=== PATIENT | female | born 1980 | race African-American/Black ===

== ENCOUNTER 2016-11-18 10:40 | Inpatient (IN) | payer MEDICARE ==
[~2016-11-18] VITALS: Ht 165.1 cm; Wt 60.1 kg
[2016-11-18] VITALS (35 sets, daily range): BP systolic 118–167; BP diastolic 81–105; BMI 19.6
--- NOTE | 2016-11-18 13:46 | NUR ---
DR. ALVAREZ AT BEDSIDE. NAUSEATED. ZOFRAN 4MG IV ORDERED BY DR. ALVAREZ.
[2016-11-18] MEDS ORDERED: COREG12.5 MG PO (13:59)
[2016-11-18] MEDS ORDERED: NIFEDIPINE ER90 MG PO (14:00)
[2016-11-18 14:51] LABS: BASOPHILS 0.1 % (0-2); EOSINOPHILS 0.1 % (0-7); HEMOGLOBIN 9.6 g/dL (12-16); IMMATURE GRANULOCYTES 0.5 % (0-5); LYMPHOCYTES 5.4 % (15-50); MCH 31.3 pg (26.0-34.0); MCHC 34.3 g/dL (31.0-37.0); MCV 91.2 fL (80.0-100.0); MEAN PLATELET VOLUME 10.4 fL (7.4-10.4); MONOCYTES 4.1 % (2-11); NEUTROPHILS 89.8 % (40-80); PLATELET COUNT 83 10x3/uL (130-400); RBC 3.07 10x6/uL (4.00-5.40); RDW 13.5 % (11.5-14.5); WBC 15.2 10x3/uL (4.8-10.8)
[2016-11-18 15:10] LABS: ALBUMIN 3.1 g/dL (3.4-5.0); ANION GAP 22.5 mmol/L (8-16); BILIRUBIN - DIRECT 0.1 mg/dL (0.00-0.30); BILIRUBIN - INDIRECT 0.27 mg/dL (0.00-1.00); BILIRUBIN - TOTAL 0.37 mg/dL (0.2-1.3); CARBON DIOXIDE 17.9 mmol/L (21.0-32.0); CREATININE - SERUM 12.8 mg/dL (0.6-1.3); POTASSIUM - SERUM 3.4 mmol/L (3.5-5.1); PROTEIN - SERUM 6.3 g/dL (6.4-8.2)
[2016-11-18 15:11] LABS: CALCIUM 5.8 mg/dL (8.5-10.1)
--- NOTE | 2016-11-18 15:17 | NUR ---
REC'D CRITCAL LABS CALCIUM: 5.8 ALBUIMIN:: 3.1 CORRECTEC CA+: 6.52 CREAT: 12.[address] ALVAREZ - AWAITING CALL BACK.
--- NOTE | 2016-11-18 15:20 | NUR ---
INFORMED DR. ALVAREZ OF CRITICAL LABS - REVIEWED K+: 3.4; CO2: 17.9 - NO NEW ORDERS. AT BEDSIDE VISITING. CPOC
[2016-11-18 15:31] LABS: PLATELET ESTIMATE DECREASED
[2016-11-18 16:00] LABS: ERYTHROCYTE SEDIMENTATION RATE 25 mm/hr (0-20)
--- NOTE | 2016-11-18 16:07 | NUR ---
UPDATED AND PT OF VISITING HOURS - I&Os COMPLETED PT DENIED NAUSEA OR PAIN - CPOC
--- NOTE | 2016-11-18 18:00 | NUR ---
PT DENIED NAUSE - ASKED FOR JELLO AND LIGHT LIQUIDS. FAMILY AT BEDSIDE - CPOC VSS.
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
[2016-11-18 20:27] LABS: CREATININE - URINE 101.4 mg/dL (30-125)
[2016-11-18 20:28] LABS: PRO/CRE RATIO URINE 3.7 mg/g; PROTEIN - URINE 376.2 mg/dL (0.0-11.9)
[2016-11-18 20:33] LABS: APPEARANCE HAZY (CLEAR); BACTERIA FEW /hpf (NONE SEEN); BILIRUBIN NEGATIVE (NEGATIVE); COLOR YELLOW (YELLOW); EPITHELIAL CELLS 0-5 /hpf (0-5); GLUCOSE NEGATIVE (NEGATIVE); KETONE SMALL mg/dL (NEGATIVE); LEUKOCYTE ESTERASE TRACE (NEGATIVE); NITRITE NEGATIVE (NEGATIVE); PROTEIN 2+ mg/dL (NEGATIVE); RED CELLS - URINE 0-5 /hpf (0-5); UROBILINOGEN NORMAL (NORMAL)
[2016-11-18 20:34] LABS: AMORPHOUS SEDIMENT >1+ /lpf (NONE SEEN)
--- NOTE | 2016-11-18 20:38 | NUR ---
DR. ANTONIO AYON.
--- NOTE | 2016-11-18 20:40 | NUR ---
NEW ORDERS RECEIVED FROM DR. ALVAREZ. MADE AWARE OF U/A RESULTS AND OTHER URINE TEST. WILL MONITOR.
--- NOTE | 2016-11-18 22:30 | NUR ---
EYES CLOSED. NO ACUTE DISTRESS NOTED. WILL MONITOR.
--- NOTE | 2016-11-18 23:05 | NUR ---
REASSESSMENT COMPLETED. SEE ASSESSMENT FLOWSHEET. AWOKE BRIEFLY DURING ASSESSMENT. CARDENE @ 2.5MG/HR. SBP @ 140MMHG. WILL MONITOR.
[2016-11-19] VITALS (90 sets, daily range): BP systolic 124–174; BP diastolic 77–108
--- NOTE | 2016-11-19 00:30 | NUR ---
NSR ON THE MONITOR. INCREASED CARDENE TO 5MG/HR.
--- NOTE | 2016-11-19 01:40 | NUR ---
EYES CLOSED. LAYING ON RT SIDE. NO ACUTE DISTRESS NOTED. WILL MONITOR.
--- NOTE | 2016-11-19 03:35 | NUR ---
REASSESSMENT COMPLETED. SEE ASSESSMENT FLOWSHEET. NO NEW ACUTE DISTRESS NOTED. WILL MONITOR.
--- NOTE | 2016-11-19 04:00 | NUR ---
REFUSED SCD'S. AWARE OF RISK.
--- NOTE | 2016-11-19 05:00 | NUR ---
AM LABS BEING DRAWN BY FE. WILL MONITOR.
[2016-11-19 05:52] LABS: BASOPHILS 0.3 % (0-2); EOSINOPHILS 2.2 % (0-7); HEMATOCRIT 23.8 % (36.0-48.0); HEMOGLOBIN 8.3 g/dL (12-16); IMMATURE GRANULOCYTES 0.5 % (0-5); LYMPHOCYTES 13.3 % (15-50); MCH 31.8 pg (26.0-34.0); MCHC 34.9 g/dL (31.0-37.0); MCV 91.2 fL (80.0-100.0); MONOCYTES 8.4 % (2-11); NEUTROPHILS 75.3 % (40-80); RBC 2.61 10x6/uL (4.00-5.40); RDW 13.5 % (11.5-14.5); WBC 14.7 10x3/uL (4.8-10.8)
[2016-11-19 05:58] LABS: PLATELET COUNT 118 10x3/uL (130-400)
[2016-11-19 06:14] LABS: ANION GAP 21.7 mmol/L (8-16); CARBON DIOXIDE 17.5 mmol/L (21.0-32.0); CREATININE - SERUM 13.3 mg/dL (0.6-1.3); POTASSIUM - SERUM 3.2 mmol/L (3.5-5.1)
[2016-11-19 06:15] LABS: CALCIUM 5.2 mg/dL (8.5-10.1)
[2016-11-19 06:56] LABS: ALBUMIN 2.7 g/dL (3.4-5.0)
[2016-11-19 09:33] LABS: % SATURATION 25 % (15-55); IRON 48 ug/dl (35-150); TOTAL IRON BIND CAPACITY 187 ug/dl (260-445); UNSAT IRON BIND CAPACITY 139 ug/dl (150-375)
[2016-11-19 09:47] LABS: PHOSPHOROUS 7.3 mg/dL (2.5-4.9)
[2016-11-19 10:13] LABS: HELICOBACTER PYLORI IGG NEGATIVE (NEGATIVE)
--- NOTE | 2016-11-19 11:00 | NUR ---
NO CHANGE NOTED
--- NOTE | 2016-11-19 15:00 | NUR ---
NO CHANGES NOTED
--- NOTE | 2016-11-19 17:47 | NUR ---
ORDER FAXED TO [employer] TO SCHED. HEMOSPLIT DIALYSIS CATHETER PLACEMENT, FAX CONFIRMED. PERMITS EXPLAINED AND SIGNED BY PATIENT.
--- NOTE | 2016-11-19 19:45 | NUR ---
SHIFT ASSESSMENT COMPLETE. PT ALERT AND ORIENTED X3. S1S2 AUDIBLE. HR 102 SINUS TACH VIA TELEMETRY. REGULAR BREATHING PATTERN WITH CLEAR LOBES BILAT. ACTIVE BOWEL SOUNDS IN ALL QUADS. SCAR ON ABDOMEN NOTED. PT ABLE TO AMBULATE ON OWN. SANDWICH TRAY DELIVERED PER REQUEST. INFORMED PT THAT SHE WILL BE NPO AFTER MIDNIGHT. PT STATES THAT SHE UNDERSTANDS. CARDENE INFUSING AT 6 MG/HR. BP 149/52. BED IN LOWEST POSITION. CALL LIGHT IN REACH. NO FURTHER REQUESTS.
--- NOTE | 2016-11-19 21:30 | NUR ---
NEW IV SITE TO R UPPER ARM VIA Herman POLO RN. 1 ATTEMPT, 22G. NEW SITE PER BILL PROTOCOL. PT UP IN CHAIR GIVING HERSELF A BATH. SHE STATES THAT SHE DOES NOT NEED ANYTHING AT THIS TIME. CALL LIGHT IN REACH. WILL CONTINUE TO MONITOR.
--- NOTE | 2016-11-19 23:20 | NUR ---
PT AWAKE AND WATCHING TV. REASSESSMENT COMPLETE. VSS. TITRATED DOWN TO 5 ML/HR OF CARDENE. BP IS WNL. CONTINUING TO MONITOR BP VERY CLOSELY. PT STATES THAT SHE DOES NOT NEED ANYTHING AT THIS TIME. WILL CONTINUE TO MONITOR. CALL LIGHT IN REACH.
[2016-11-20] VITALS (90 sets, daily range): BP systolic 120–158; BP diastolic 72–98; Ht 165.1 cm; Wt 60.1 kg
--- NOTE | 2016-11-20 01:00 | NUR ---
PT RESTING PEACEFULLY AT THIS TIME. VSS. WILL CONTINUE TO MONITOR.
--- NOTE | 2016-11-20 03:00 | NUR ---
REASSESSMENT COMPLETE. NO CHANGES NOTED AT THIS TIME. VSS. PT RESTING IN BED ON HER RIGHT SIDE. CALL LIGHT IN REACH. WILL CONTINUE TO MONITOR.
[2016-11-20 03:53] LABS: BASOPHILS 0.2 % (0-2); EOSINOPHILS 3.8 % (0-7); HEMATOCRIT 21.6 % (36.0-48.0); IMMATURE GRANULOCYTES 0.5 % (0-5); LYMPHOCYTES 14.6 % (15-50); MCH 30.9 pg (26.0-34.0); MCHC 33.8 g/dL (31.0-37.0); MCV 91.5 fL (80.0-100.0); MEAN PLATELET VOLUME 10.6 fL (7.4-10.4); MONOCYTES 9.2 % (2-11); NEUTROPHILS 71.7 % (40-80); PLATELET COUNT 136 10x3/uL (130-400); RBC 2.36 10x6/uL (4.00-5.40); RDW 13.7 % (11.5-14.5); WBC 13.7 10x3/uL (4.8-10.8)
[2016-11-20 03:54] LABS: HEMOGLOBIN 7.3 g/dL (12-16)
[2016-11-20 04:07] LABS: ANION GAP 19.5 mmol/L (8-16); CREATININE - SERUM 13.2 mg/dL (0.6-1.3); POTASSIUM - SERUM 3.5 mmol/L (3.5-5.1)
[2016-11-20 04:08] LABS: CALCIUM 6.7 mg/dL (8.5-10.1)
[2016-11-20 04:16] LABS: ALBUMIN 2.6 g/dL (3.4-5.0)
--- NOTE | 2016-11-20 05:00 | NUR ---
PT RESTING AT THIS TIME. NO CHANGES NOTED. BED IN LOWEST POSITION. CALL LIGHT IN REACH. WILL CONTINUE TO MONITOR.
--- NOTE | 2016-11-20 08:53 | NUR ---
0900- PT C/O HER TOUNGE BEING SWOLLEN AND THROAT EDEMA. CALLED AND REPORTED TO DR ALVAREZ, BENADRYL GIVEN AND CALCIUM GLUCONATE GIVEN. PT AT NOW VERBILIZES SYMPTOMS BETTER. REPORTED PROLONGED QT NOTED ON EKG RYTHM. REPORTED TO DR ALVAREZ WELL.
[2016-11-20 10:00] LABS: CKMB 1.8 U/L (0.0-3.6); CREATINE KINASE 273 UL (21-215)
[2016-11-20 10:03] LABS: TROPONIN-I 0.434 ng/mL (0.000-0.060)
--- NOTE | 2016-11-20 10:30 | NUR ---
SPOKE WITH JACKSON PUENTE TO NOTIFY OF TROPONIN AND CK LEVELS, ORDERS REC'D, WILL RECHECK CARDIAC ENZYMES IN 8HRS.
--- NOTE | 2016-11-20 10:50 | NUR ---
PT TO OR. CONCENTS ON CHART, PREOP MEDS GIVEN. 1050-
--- NOTE | 2016-11-20 11:36 | NUR ---
PT BACK TO ICU, PT SEDATED AND ORAL AIRWAY IN PLACE, SPO2 99% ON 4L NRB. RESP 16. BP 128/78.
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
--- NOTE | 2016-11-20 11:59 | NUR ---
PT CONTINUES TO BE UNRESPONSIVE,ORAL AIRWAY INTACT. VSS, AFEBRILE. NARCAN 0.2MG GIVEN.
--- NOTE | 2016-11-20 12:01 | NUR ---
PT AWAKENS QUICKLY AFTER NARCAN GIVEN. A&OX2, FOLLOWS COMMAND.
--- NOTE | 2016-11-20 15:30 | NUR ---
Dialysis Coordinator: [facility]: Notified by Courtney MEDLEY of paitent needing OPHD arrangements. Per CM patient previously on PD, then regained function. Patient now needing placement for OPHD. Patient lives in [place] and needs placement in the [place] area. Referral sent to [facility] Admissions for placement at [facility]. JOSE WALLS.
[2016-11-20 18:33] LABS: CKMB 2.1 U/L (0.0-3.6); CREATINE KINASE 290 UL (21-215)
[2016-11-20 18:38] LABS: TROPONIN-I 0.753 ng/mL (0.000-0.060)
--- NOTE | 2016-11-20 19:00 | NUR ---
SHIFT ASSESSMENT COMPLETE. PT IN BED STATING THAT SHE IS IN SOME PAIN. CALLED PHYSICIAN. NEW ORDER FOR TRAMADOL 50 MG Q 6 HRS VIA GERMAINE. PT ALERT AND ORIENTED TO PERSON, PLACE, TIME, AND SITUATION. S1S2 AUDIBLE. HR 105, SINUS TACH VIA TELEMETRY. L JUGULAR HEMASPLIT PLACED TODAY. DRESSING INTACT WITH BLOODY DRAINAGE NOTED. CLEAR LUNG SOUNDS THROUGHOUT ALL LOBES. BOWEL SOUNDS ACTIVE X4. 2 IV ACCESS POINTS IN R ARM: R UPPER AND R FOREARM. CARDENE INFUSING AT 5MG/HR IN THE RIGHT UPPER IV. SKIN IS WARM TO TOUCH, CAP REFILL < 3 SEC. PT REPOSITIONED FOR COMFORT. CALL LIGHT IN REACH. BED IN LOWEST POSITION. WILL CONTINUE TO MONITOR.
--- NOTE | 2016-11-20 21:00 | NUR ---
PT STATES THAT HER PAIN IS A 4/10 AFTER RECIEVING PRN PAIN MEDICATION. REPOSITONED FOR COMFORT. WATER PROVIDED AT BEDSIDE. VSS. LIGHT OUT. WILL CONTINUE TO MONITOR.
--- NOTE | 2016-11-20 21:06 | NUR ---
DR. HERRON NOTIFIED THAT PT IS REFUSING ROCEPHIN D/T TONGUE SWELLING THIS AM - NEW ORDERS REC'D.
--- NOTE | 2016-11-20 23:00 | NUR ---
PT RESTING. REASSESSMENT COMPLETE. L NECK DRESSING INTACT WITH BLOODY DRAINAGE NOTED. NO CHANGE FROM SHIFT ASSESSMENT. STILL WAITING FOR LEVOQUIN VIA PHARMACY. HR 105, SINUS TACH VIA TELEMETRY. BP 137/87. PT DENIES ANY REQUESTS AT THIS TIME. WILL CONTINUE TO MONITOR.
[2016-11-21] VITALS (89 sets, daily range): BP systolic 119–165; BP diastolic 71–99
--- NOTE | 2016-11-21 01:00 | NUR ---
PT RESTING AT THIS TIME. NO SIGNS OF PAIN OR DISTRESS. VSS. WILL CONTINUE TO MONITOR.
--- NOTE | 2016-11-21 03:00 | NUR ---
REASSESSMENT COMPLETE. DRESSING INTACT WITH BLOODY DRAINAGE. NO NEW FINDINGS. PT RESTING PEACEFULLY AT THIS TIME. HR 98, NORMAL SINUS RHYTHM VIA TELEMETRY. VSS. WILL CONTINUE TO MONITOR.
[2016-11-21 04:00] LABS: BASOPHILS 0.2 % (0-2); EOSINOPHILS 4.2 % (0-7); HEMATOCRIT 25.2 % (36.0-48.0); HEMOGLOBIN 8.6 g/dL (12-16); IMMATURE GRANULOCYTES 0.5 % (0-5); LYMPHOCYTES 15.5 % (15-50); MCH 31.2 pg (26.0-34.0); MCHC 34.1 g/dL (31.0-37.0); MCV 91.3 fL (80.0-100.0); MEAN PLATELET VOLUME 11.7 fL (7.4-10.4); MONOCYTES 9.8 % (2-11); NEUTROPHILS 69.8 % (40-80); RBC 2.76 10x6/uL (4.00-5.40); RDW 14.3 % (11.5-14.5)
--- NOTE | 2016-11-21 04:00 | NUR ---
TITRATED CARDENE DOWN TO 4 MG/HR. BP 126/71. VSS. PT RESTING AT THIS TIME.
[2016-11-21 04:05] LABS: PLATELET COUNT 176 10x3/uL (130-400)
[2016-11-21 04:31] LABS: CALC OSMOLALITY 299 mosm/kg (275-300); CARBON DIOXIDE 17.9 mmol/L (21.0-32.0); CHLORIDE - SERUM 102 mmol/L (98-107); CKMB 1.4 U/L (0.0-3.6); CREATINE KINASE 269 UL (21-215); CREATININE - SERUM 13.8 mg/dL (0.6-1.3); GLUCOSE 102 mg/dL (74-106); POTASSIUM - SERUM 3.3 mmol/L (3.5-5.1); SODIUM 135 mmol/L (136-145); UREA NITROGEN 96 mg/dL (7-18); eGFR NON AFRICAN AMERICAN 3 mL/min (90-120)
[2016-11-21 04:32] LABS: CALCIUM 5.7 mg/dL (8.5-10.1)
--- NOTE | 2016-11-21 05:10 | NUR ---
PT RESTING AT THIS TIME. NO S/S OF DISTRESS OR PAIN. VSS. WILL CONTINUE TO MONITOR.
--- NOTE | 2016-11-21 06:15 | NUR ---
CRITICAL LABS RECIEVED CALCIUM: 5.7 ALBUMIN: 2.5 CORRECTED CALCIUM: 6.90 CL: 102 PAGED GERMAINE.
--- NOTE | 2016-11-21 06:45 | NUR ---
INFORMED JOSHUA ABOUT CRITICAL. NEW ORDERS RECIEVED: GIVE 1 AMP CACL.
[2016-11-21 07:18] LABS: FOLATE (FOLIC ACID) - SERUM 6.9 ng/mL (>3.0)
--- NOTE | 2016-11-21 09:16 | NUR ---
HD HERE SETTING UP AT BS, ORDERS ON CHART. BREAKFAST TRAY GIVEN AND PT DRANK JUICE BUT REFUSED HER MEAL THIS AM. BP 148/88, CARDENE GTT DEC TO 3MG/HR FROM 4MG/HR.
--- NOTE | 2016-11-21 11:22 | NUR ---
0930- HD STARTED, VSS, PT AWAKE AND WATCHING TV.
--- NOTE | 2016-11-21 11:23 | NUR ---
1130- HD STILL IN PROGRESS, DR HERRON HERE. VSS.
--- NOTE | 2016-11-21 12:39 | NUR ---
HD COMPLETE. VSS.
--- NOTE | 2016-11-21 12:48 | NUR ---
Mrs. Junior had bedside hemodialysis today via her left chest hemosplit from 0930 until 1230. Average blood flow was 400 mls/minute. Net fluid removed was 1000 mls. Post vital signs were: B/P: 157/90, HR: 90, Temp: 98.8, Resps: 16. No problems.
--- NOTE | 2016-11-21 19:15 | NUR ---
REPORT RECEIVED AND CARE ASSUMED. PT NOTED TO BE MONITORED PER STANDARD ICU PROTOCOL WITH ALL IV LINES AND FLUIDS LABELED AND CURRENT. DRESSING TO LEFT JUGULAR HEMISPLIT WITH SOME BLOODY DRAINAGE AND CLOT. REINFORCED. NO ACTIVE BLEEDING AT THIS TIME. PT AAOX4 AND DENIES PAIN AND NEEDS. PT NOTED TO BE ON 2 MCG/HR CARDENE AND IT WAS REPORTED TO HAVE JUST BEEN INCREASED FROM 1MCG. WILL MONITOR AND TITRATE NEEDED TO MAINTAIN PARIMETERS ORDERED OF 90-140. CALL LIGHT IN REACH OF PT AND BED IN LOW POSITION.
--- NOTE | 2016-11-21 20:00 | NUR ---
B/P REMAINS OUTSIDE ORDERED PARIMETER WILL BE TITRATING AND ADJUSTING CARDENE. SEE IV FLOWSHEET FOR CHANGES
--- NOTE | 2016-11-21 21:00 | NUR ---
HS MEDS GIVEN WITHOUT DIFFICULTY. PT TEACHING DONE PRIOR TO ADMINISTRATION. PT VERBALIZES UNDERSTANDING. PT AMBULATED TO CHAIR AND GAVE SELF BATH AFTER SET UP DONE. ALL LINENS CHANGED AND PT ASSISTED BACK INTO BED AND RECONNECTED BACK TO MONITORS. NO COMPLAINTS OFFERED
--- NOTE | 2016-11-21 23:00 | NUR ---
SHIFT REASSESSMENT COMPLETED SEE FLOWSHEET NO ACUTE CHANGES. HS SNACK OF SANDWICH PROVIDED. PT AAOX4 WATCHING TELEVISION
[2016-11-22] VITALS (76 sets, daily range): BP systolic 128–183; BP diastolic 75–110
--- NOTE | 2016-11-22 01:00 | NUR ---
PT SLEEPING RESP REG AND NONLABORED. CONTINUE TO TITRATE CARDENE PER FLOWSHEET
--- NOTE | 2016-11-22 03:30 | NUR ---
PT RESTING AT THIS TIME. REASSESSMENT COMPLETE. NO CHANGES FROM PREVIOUS ASSESSMENT. S1S2 AUDIBLE. CLEAR LUNG SOUNDS BILAT. BOWEL SOUNDS ACTIVE X4. CHANGED IV TUBING. STICKER PLACED TO INDICATE WHEN TUBING IS NEEDING TO BE CHANGED AGAIN. SWAB CAPS IN USE. FLUSHED LOWER R ARM IV WITH 10CC NS. IV PATENT WITH NO S/S OF INFILTRATION. CALL LIGHT IN REACH. WILL CONTINUE TO MONITOR.
[2016-11-22 03:51] LABS: BASOPHILS 0.2 % (0-2); EOSINOPHILS 2.9 % (0-7); HEMATOCRIT 24.9 % (36.0-48.0); HEMOGLOBIN 8.3 g/dL (12-16); IMMATURE GRANULOCYTES 0.4 % (0-5); LYMPHOCYTES 12.3 % (15-50); MCH 31.2 pg (26.0-34.0); MCHC 33.3 g/dL (31.0-37.0); MCV 93.6 fL (80.0-100.0); MEAN PLATELET VOLUME 11.5 fL (7.4-10.4); MONOCYTES 10.9 % (2-11); NEUTROPHILS 73.3 % (40-80); PLATELET COUNT 199 10x3/uL (130-400); RBC 2.66 10x6/uL (4.00-5.40); RDW 14.5 % (11.5-14.5); WBC 9.6 10x3/uL (4.8-10.8)
[2016-11-22 04:03] LABS: POTASSIUM - SERUM 3.5 mmol/L (3.5-5.1)
[2016-11-22 04:18] LABS: ANION GAP 11.6 mmol/L (8-16); CALCIUM 6.5 mg/dL (8.5-10.1); CARBON DIOXIDE 27.9 mmol/L (21.0-32.0); CREATININE - SERUM 7.2 mg/dL (0.6-1.3)
--- NOTE | 2016-11-22 05:00 | NUR ---
PT SLEEPING AT THIS TIME. BP 135/77, WITHIN PARAMETERS FOR CARDENE DRIP. BED IN LOWEST POSITON. CALL LIGHT IN REACH.
--- NOTE | 2016-11-22 05:00 | NUR ---
RECIEVED CRITICAL LAB CALCIUM: 6.5 ALBUMIN: 2.2 CORRECTED CALCIUM: 7.94
--- NOTE | 2016-11-22 06:55 | NUR ---
INFORMED DR. HERRON OF CRITICAL LABS.
--- NOTE | 2016-11-22 07:48 | NUR ---
DR HERRON HERE, REC'D ORDERS TO TITRATE CARDEDE DOWN SBP LESS THAN 160 DECREASED CARDENE GTT TO 6MG/HR.
--- NOTE | 2016-11-22 10:09 | NUR ---
hd in progress, bp 145/87, hr 93. cardene gtt titrated down to 5mg/hr this am.
--- NOTE | 2016-11-22 11:04 | NUR ---
Nutrition follow-up: Diet: Regular per renal PO intake ~50% of meals; pt has been refusing some meals also Receiving dialysis at this time Will continue to provide food choices and honor food preferences. RDN following.
--- NOTE | 2016-11-22 12:17 | NUR ---
Mrs. Junior had bedside hemodialysis today from 0847 until 1147 via her left IJ Hemosplit. Average blood flow was 400 mls/minute. Net fluid removed was 1000 mls. Post vital signs were: B/P: 151/83, HR: 93, Temp: 98.7, Resps: 18.
--- NOTE | 2016-11-22 13:47 | NUR ---
CARDENE TITRATED TO OFF. SBP 148, 15MIN AFTER CARDENE OFF [id number]. PRN LABETELOL GIVEN. SBP NOW 148. HR 95 NSR.
--- NOTE | 2016-11-22 16:18 | NUR ---
BP 169/108. DR HERRON NOTIFIED AND REC'D ORDERS FOR PO PROCARDIA. DR MCCLELLAN HERE ON ROUNDS.
--- NOTE | 2016-11-22 17:03 | NUR ---
1700-SBP 165/107. LABETELOL GIVEN.
--- NOTE | 2016-11-22 19:00 | NUR ---
REPORT RECEIVED. ASSESSMENT COMPLETE PER FLOW SHEET. TELEMETRY MONITORING RATE OF 84 NORMAL SINUS. BP 149/94. ORAL TEMP 98.9. RR 12. O2 SATURATION 99% ROOM AIR. S1S2 PRESENT. LUNG SOUNDS CLEAR BILAT. BOWEL SOUNDS ACTIVEX4. ABDOMENAL SCARS NOTED. 2 IN LEFT JUGULAR INCISION, AREA IS CLEAN AND DRY. L SUBCLAVIAN HEMOSPLIT DIALYSIS CATHETER, DRESSING ADHERED TO SKIN, CLEAN, AND DRY. R UPPER ARM PIV SALINE LOC, PATENT, DRESSING CLEAN, DRY, AND INTACT. R FOREARM PIV PATENT, DRESSING INTACT, CLEAN, AND DRY. RADIAL PULSES PALP BILAT. POPLITEAL PULSES PALP BILAT. [employer] SCOUT STRENGHT. FULL ROM UPPER AND LOWER EXTREMITIES. SKIN WARM AND DRY. CAPILLARY REFILL <3 SECS UPPER AND LOWER EXTREMITIES. SEE FLOW SHEET FOR COMPLETE ASSESSMENT. BED IN LOWEST POSITION. CALL LIGHT WITHIN REACH. DENIES FURTHER NEEDS AT THIS TIME. WILL CONTINUE TO MONITOR.
--- NOTE | 2016-11-22 21:00 | NUR ---
AWAKE, LAYING IN BED. BP 142/87. HR 93. R FOREARM PIV REMOVED. BED IN LOWEST POSITION. CALL LIGHT WITHIN REACH. WILL CONTINUE TO MONITOR.
--- NOTE | 2016-11-22 22:06 | NUR ---
MED ADMINISTERED. VSS. SANDWICH TRAY AND WATER PROVIDED PER REQUEST. BED IN LOWEST POSITION. CALL LIGHT WITHIN REACH. WILL CONTINUE TO MONITOR.
--- NOTE | 2016-11-22 23:00 | NUR ---
AWAKE LAYING IN BED. REASSESSMENT COMPLETE PER FLOW SHEET. BP 132/79. HR 94. REFER TO FLOW SHEET FOR COMPLETE ASSESSMENT. BED IN LOWEST POSITION. CALL LIGHT WITHIN REACH. WILL CONTINUE TO MONITOR.
[2016-11-23] VITALS (14 sets, daily range): BP systolic 132–153; BP diastolic 76–99
--- NOTE | 2016-11-23 01:00 | NUR ---
ASLEEP, RESTING IN BED. VSS. BED IN LOWEST POSITION. CALL LIGHT WITHIN REACH. WILL CONTINUE TO MONITOR.
--- NOTE | 2016-11-23 03:00 | NUR ---
REASSESSMENT COMPLETE PER FLOW SHEET. BP 148/93. NO CHANGES NOTED. REFER TO FLOW SHEET FOR COMPLETE ASSESSMENT. BED IN LOWEST POSITION. CALL LIGHT WITHIN REACH. WILL CONTINUE TO MONITOR.
--- NOTE | 2016-11-23 05:00 | NUR ---
LAYING IN BED, ASLEEP. BP 153/94. VSS. BED IN LOWEST POSITION. WILL CONTINUE TO MONITOR.
[2016-11-23 05:05] LABS: BASOPHILS 0.2 % (0-2); EOSINOPHILS 3.2 % (0-7); HEMATOCRIT 24.8 % (36.0-48.0); HEMOGLOBIN 8.1 g/dL (12-16); IMMATURE GRANULOCYTES 0.5 % (0-5); LYMPHOCYTES 14.6 % (15-50); MCH 31.6 pg (26.0-34.0); MCHC 32.7 g/dL (31.0-37.0); MEAN PLATELET VOLUME 11.2 fL (7.4-10.4); MONOCYTES 11.5 % (2-11); RBC 2.56 10x6/uL (4.00-5.40); RDW 14.1 % (11.5-14.5); WBC 10.7 10x3/uL (4.8-10.8)
[2016-11-23 05:09] LABS: MCV 96.9 fL (80.0-100.0); PLATELET COUNT 244 10x3/uL (130-400)
[2016-11-23 05:11] LABS: ANION GAP 10.7 mmol/L (8-16); CALCIUM 7.1 mg/dL (8.5-10.1); POTASSIUM - SERUM 3.7 mmol/L (3.5-5.1)
[2016-11-23 05:14] LABS: CREATININE - SERUM 5.2 mg/dL (0.6-1.3)
--- NOTE | 2016-11-23 07:45 | NUR ---
ASSESSMENT COMPLETE. AAO X4. ROOM AIR. CLEAR LUNGS. NSR. RADIAL AND PEDAL PULSES PALP. DENIES NEEDS, DENIES PAIN. ACTIVE BOWEL SOUNDS X4. REPORTS FRUSTRATION ABOUT BEING IN ICU AND REQUESTS TO BE D/C OR MOVED TO REGULAR UNIT SO FAMILY CAN VISIT FREELY. IJ HEMOSPLIT SL. RF PIV PATENT. FOR OTHER ASSESSMENT FINDINGS SEE FLOWSHEET
--- NOTE | 2016-11-23 09:28 | NUR ---
MEDS GIVEN. PT WITHDRAWN, FRUSTRATED. SAYS "IM READY TO GO HOME."
--- NOTE | 2016-11-23 09:44 | NUR ---
DR. HERRON AT BEDSIDE. NEW ORDERS RECEIVED.
--- NOTE | 2016-11-23 11:10 | NUR ---
DIALYSIS NURSE AT BEDSIDE, BLOOD INFUSING. DIALYSIS IN PROGRESS.
[2016-11-23 12:14] LABS: SPE - A/G RATIO 1.2 (0.7-1.7); SPE - ALBUMIN 3.2 g/dL (2.9-4.4); SPE - ALPHA-1 GLOBULIN 0.4 g/dL (0.0-0.4); SPE - ALPHA-2 GLOBULIN 0.5 g/dL (0.4-1.0); SPE - BETA GLOBULIN 0.9 g/dL (0.7-1.3); SPE - GAMMA GLOBULIN 0.9 g/dL (0.4-1.8); SPE - M-SPIKE Not Observed g/dL (Not Observed); SPE - TOTAL PROTEIN 5.9 g/dL (6.0-8.5)
--- NOTE | 2016-11-23 13:06 | NUR ---
Mrs. Junior had bedside hemodialysis today via her left chest hemosplit from 0947 until 1247. Average blood flow was 400 mls/minute. Transfused one unit of prbc's. Removed the 350 mls from the prbc's as well as a net of 1000 mls. Post vital signs were: B/P: 156/97, HR: 86, Temp: 98.4, Resps: 16.
--- NOTE | 2016-11-23 13:30 | NUR ---
DIALYSIS COMPLETED EARLIER. PT DENIES NEEDS AT THIS TIME. TOOK PT LUNCH TRAY
--- NOTE | 2016-11-23 15:28 | NUR ---
PT FRUSTRATED BECAUSE SHE IS WANTING TO MOVE TO A REGULAR FLOOR. NOTIFIED FUR BLOWING MACHINE OPERATOR. SAID HE WOULD GET HER A BED. SHE IS WANTING TO MOVE OUT BECAUSE SHE WANTS HER FAMILY TO COME SEE HER AND BE ABLE TO STAY WITH HER.
--- NOTE | 2016-11-23 15:37 | NUR ---
11/23/2016 15:36 DCP: Discharge Planning Patient Name: DANIEL NAIR Encounter No: [id number] : 1980 Primary Insurance: [employer] Anticipated DC Date: Planned Disposition: Home DCP follow-up note: GALINDO spoke with Lindsey with [facility] - she is still working to get patient on HD schedule in [place]. Patient and family in agreement with discharge plan. No changes to plan. Case management will follow and assist as needed. Courtney Butler
--- NOTE | 2016-11-23 16:46 | NUR ---
Patient Name: DANIEL NAIR Encounter No: [id number] : 1980 Primary Insurance: [employer] BLUE ADVANTAGE Anticipated DC Date: 11-24-2016 Planned Disposition: Home DCP follow-up note: CM RECEIVED MESSAGE FROM DR. HERRON ASKING THAT PT BE SET UP AT [facility] FOR OUTPATIENT DIALYSIS FOR T/T/SA SCHEDULE, PROJECTED DISCHARGE HOME TOMORROW IF STABLE AND OUTPATIENT CLINIC ARRANAGEMENTS ARE COMPLETED. CM SPOKE TO BLANCO OF [facility], , WHO REPORTS SHE IS WORKING ON GETTING PT AN OUTPATIENT CHAIR TIME AT [facility] IN [place] AND WILL NOTIFY CASE MANAGMENT SOON IT IS RECEIVED. CM TO FOLLOW AND ASSIST NEEDED. Hero Shaffer, CASE MANAGEMENT
--- NOTE | 2016-11-23 17:10 | NUR ---
Dialsyis Coordinator: [facility]: Patient has been accepted @ [facility] on Sunday//Sunday @ 11:15am. Welcome Letter printed and faxed to the CM for the patient. Patient cannot start in the unit until Sunday11/28/16. Dr. Salcedo notified. JOSE. TITI.
--- NOTE | 2016-11-23 18:10 | NUR ---
PATIENT RECEIVED TO ROOM 2108, SHE IS SITTING UP STYLE IN HER BED. LINENS GIVEN FOR A SHOWER. SHE DNIED OTHER NEEDS AT THIS TIMES.
--- NOTE | 2016-11-23 20:09 | NUR ---
PT AWAKE, ALERT, ORIENTED, DENIES ANY NEEDS. CONTINUE TO MONITOR CLOSELY.
--- NOTE | 2016-11-23 22:38 | NUR ---
PT LYING IN BED, AWAKE, ALERT, ORIENTED, DENIES ANY NEEDS. IV LEVAQUIN INFUSING. NO COMPLAINTS. CONTINUE TO MONITOR CLOSELY.
[2016-11-24] VITALS: BP 153/96
[2016-11-24 04:00] VITALS: BP 153/80
[2016-11-24 08:18] LABS: UPE RAND - ALBUMIN 60.5 % (()); UPE RAND - ALPHA 1 GLOBULIN 4.2 % (()); UPE RAND - ALPHA 2 GLOBULIN 12.4 % (()); UPE RAND - BETA GLOBULIN 9.5 % (()); UPE RAND - GAMMA GLOBULIN 13.3 % (())
[2016-11-24 08:20] VITALS: BP 154/100
--- NOTE | 2016-11-24 09:57 | NUR ---
PATIENT OFF THE UNIT TO DIALYSIS.
[2016-11-24] MEDS ORDERED: ROCALTROL0.25 MCG PO (10:47)
[2016-11-24] MEDS ORDERED: COREG12.5 MG PO (10:47)
[2016-11-24] MEDS ORDERED: ULTRAM50 MG PO (10:48)
[2016-11-24] MEDS ORDERED: TUMS500 MG PO (10:48)
--- NOTE | 2016-11-24 11:50 | NUR ---
11/24/2016 11:45 DCP: Discharge Planning Patient Name: DANIEL NAIR Encounter No: [id number] : 1980 Primary Insurance: [employer] BLUE ADVANTAGE Anticipated DC Date: Planned Disposition: Home External Planned Provider: Narendra SINGH DCP follow-up note: DC order rec'd. Rec'd message from Lindsey stating patient has been set up for OP HD @ [facility] 6940 to begin 11/28. [address] Dr. Salcedo. Patient and family in agreement with discharge plan. No changes to plan. Case management will follow and assist as needed. Courtney Butler
[2016-11-24 12:35] VITALS: BP 160/95
--- NOTE | 2016-11-24 12:46 | NUR ---
DISCUSSED DISCHARGE INSTRUCTIONS AND OUTPATIENT DIALYSIS ORDERS. RX FOR TRAMADOL GIVEN. DENIES QUESTIONS.
== END 2016-11-24 13:05 | disposition home or self-care (01) | DRG 683 ==
LOC: D.ICU 10:40 → D.M2 11-23 17:28
PROVIDERS: Surgery; ADMIT Internal Medicine Nephrology
PROC: 02HV33Z Insertion of Infusion Device into Superior Vena Cava, Percutaneous Approach (ICD-10-PCS; 2016-11-20)
PROC: B5181ZA Fluoroscopy of Superior Vena Cava using Low Osmolar Contrast, Guidance (ICD-10-PCS; 2016-11-20)
PROC: B548ZZA Ultrasonography of Superior Vena Cava, Guidance (ICD-10-PCS; 2016-11-20)
PROC: 02H633Z Insertion of Infusion Device into Right Atrium, Percutaneous Approach (ICD-10-PCS; 2016-11-20)
PROC: B2141ZZ Fluoroscopy of Right Heart using Low Osmolar Contrast (ICD-10-PCS; 2016-11-20)
PROC: 5A1D60Z (ICD-10-PCS; principal; 2016-11-20 10:45)
DX: N17.9 Acute kidney failure, unspecified (principal); I12.0 Hypertensive chronic kidney disease with stage 5 chronic kidney disease or end stage renal disease; E87.2 Acidosis; I24.8 Other forms of acute ischemic heart disease; N39.0 Urinary tract infection, site not specified; N18.6 End stage renal disease; D69.6 Thrombocytopenia, unspecified; D63.1 Anemia in chronic kidney disease; E83.51 Hypocalcemia; I34.0 Nonrheumatic mitral (valve) insufficiency; E87.6 Hypokalemia

== ENCOUNTER 2017-02-13 07:19 | Day surgery (SDC) | payer MEDICARE ==
[~2017-02-13] VITALS: Ht 165.1 cm; Wt 54.4 kg
--- NOTE | ~2017-02-13 | OP ---
PATIENT NAME: DANIEL JUNIOR MEDICAL RECORD: [id number] :[birth year] LOCATION:[facility] ADMISSION DATE: SURGEON: LUCÍA JACOB MD DATE OF OPERATION: 02/13/2017 REFERRING PHYSICIAN: Huber Gregory MD PREOPERATIVE DIAGNOSIS: ESRD, on dialysis. POSTOPERATIVE DIAGNOSIS: ESRD, on dialysis. OPERATION PERFORMED: Creation of a Sunday-type brachial basilic AV fistula in the left arm to prepare the basilic vein for creation of a brachial artery to translocated basilic vein AV fistula, perhaps in 4-6 weeks. PREOPERATIVE NOTE: Ms. Junior is a 36-year-old -[place] female with end-stage renal disease, who is presently on dialysis with a tunneled dialysis catheter. She had, in the past, done peritoneal dialysis successfully, but does not want to do peritoneal dialysis now and indeed does not have a catheter. She had gotten off dialysis and just recently had to get back on. She also is uncertain whether she wants to have a transplant. She unfortunately is quite a petite young lady with very small blood vessels and hemodialysis access may well prove problematic for her. At any rate, she is brought to the operating room at this time to try to make an AV fistula in her left arm. It appears from her preoperative mapping studies that the basilic vein could be an adequate conduit. DESCRIPTION OF PROCEDURE: Under general anesthesia with LMA per PROJECT MANAGER PROCESS DEVELOPMENT, the patient was placed in the supine position and the left arm was prepped and draped in sterile manner. I examined her with ultrasound and indeed found the basilic vein to be dominant with a very small cephalic vein in the upper arm. The cephalic vein at the wrist was of potential usefulness, but the radial artery was small and I thought that it would be unlikely she can mature a wrist fistula. So, I went ahead with the preop plan of making a brachial basilic Sunday. A transverse incision across the antecubital space was made and the median cubital vein tributary of the basilic vein was mobilized and treated with topical papaverine and distended hydrostatically. The brachial artery was exposed and controlled with Silastic loops. The vein was closed with Hemoclips distally and then transected and beveled. It was very small, 2 mm to 3 mm in diameter, 3 mm when dilated and hydrostatically distended. It was treated with topical papaverine several times and flushed with heparinized saline. The artery was then occluded and a small arteriotomy was made, about 4 mm in length, and an end-to-side anastomosis was then performed with running 7-0 Prolene. When completed, the anastomosis was indeed found to be hemostatic, and with release of the occluding arterial loops, excellent flow was established immediately within the fistula. The wound was irrigated with Ancef/gentamicin solution, infiltrated with 0.25% Marcaine with epinephrine, and closed with interrupted inverted 3-0 Vicryl and running intracuticular 4-0 Monocryl and Dermabond glue. It was dressed with Maxorb Ag, Tegaderm, and Cavilon skin prep. The patient will be discharged today to home to continue her home medications and diet. She is given a prescription for tramadol 50 mg, #20 tablets, she can take one p.o. q. 4 hours p.r.n. pain. An appointment scheduled for her to return to see me in my office next week. Blood loss during the procedure was about 5 cc, none was replaced. All sponges, instruments, and needles were accounted for. No drain was used. No surgical specimen was submitted for OPERATIVE REPORT [id number] DANIEL JUNIOR histopathology. TRANSINT:[id number] Voice Confirmation ID: [id number] DOCUMENT ID: [id number] LUCÍA JACOB MD CC: KISHAN GREGORY MD [id number] DICTATION DATE: 02/13/17 145 [facility]AB PHYSICIAN: 02/13/17 1825 [facility] [address] [place] [address]
[~2017-02-13 07:19] MED LIST: COREG12.5 MG PO; NIFEDIPINE ER90 MG PO; ROCALTROL0.25 MCG PO; TUMS500 MG PO; ULTRAM50 MG PO
[2017-02-13 07:52] LABS: BASOPHILS 0.5 % (0-2); EOSINOPHILS 8.4 % (0-7); HEMATOCRIT 33.4 % (36.0-48.0); IMMATURE GRANULOCYTES 0.4 % (0-5); LYMPHOCYTES 18.5 % (15-50); MCH 31.4 pg (26.0-34.0); MCHC 32.9 g/dL (31.0-37.0); MCV 95.4 fL (80.0-100.0); MEAN PLATELET VOLUME 10.6 fL (7.4-10.4); MONOCYTES 11.9 % (2-11); NEUTROPHILS 60.3 % (40-80); PLATELET COUNT 241 10x3/uL (130-400); RDW 13.3 % (11.5-14.5); WBC 7.4 10x3/uL (4.8-10.8)
[2017-02-13 08:15] LABS: APTT 31.4 SECONDS (22.8-39.4); INR 0.98 (0.85-1.17); PROTIME 12.8 SECONDS (11.6-15.0)
[2017-02-13 08:18] LABS: ANION GAP 14.6 mmol/L (8-16); CALCIUM 8.8 mg/dL (8.5-10.1); CARBON DIOXIDE 27.4 mmol/L (21.0-32.0); CREATININE - SERUM 6.3 mg/dL (0.6-1.3)
[2017-02-13 08:52] LABS: HCG SERUM NEGATIVE (NEGATIVE)
[2017-02-13 09:38] VITALS: BP 113/73; Ht 165.1 cm; Wt 54.4 kg
[2017-02-13] MEDS ORDERED: ULTRAM50 MG PO (14:36)
--- NOTE | 2017-02-13 16:40 | NUR ---
DISCHARGE INSTRUCTIONS REVIEWED WITH PATIENT, DISCHARGED HOME VIA WHEELCHAIR TO PRIVATE VEHICLE WITH SPOUSE
== END 2017-02-13 16:40 | disposition home or self-care (01) ==
LOC: D.OPS 07:19
PROVIDERS: Anesthesiology; Surgery
DX: I12.0 Hypertensive chronic kidney disease with stage 5 chronic kidney disease or end stage renal disease (principal); N18.6 End stage renal disease; K21.9 Gastro-esophageal reflux disease without esophagitis; Z99.2 Dependence on renal dialysis; Z01.812 Encounter for preprocedural laboratory examination

== ENCOUNTER 2017-04-03 07:34 | Day surgery (SDC) | payer MEDICARE ==
[~2017-04-03] VITALS: Ht 165.1 cm; Wt 54.9 kg
[2017-04-03 08:09] LABS: BASOPHILS 0.6 % (0-2); EOSINOPHILS 5.4 % (0-7); HEMATOCRIT 38.6 % (36.0-48.0); HEMOGLOBIN 12.5 g/dL (12-16); IMMATURE GRANULOCYTES 0.3 % (0-5); LYMPHOCYTES 14.5 % (15-50); MCH 32.2 pg (26.0-34.0); MCHC 32.4 g/dL (31.0-37.0); MCV 99.5 fL (80.0-100.0); MEAN PLATELET VOLUME 9.5 fL (7.4-10.4); MONOCYTES 8.7 % (2-11); NEUTROPHILS 70.5 % (40-80); PLATELET COUNT 272 10x3/uL (130-400); RBC 3.88 10x6/uL (4.00-5.40); RDW 14.3 % (11.5-14.5)
[2017-04-03 08:21] LABS: INR 1.03 (0.85-1.17); PROTIME 13.3 SECONDS (11.6-15.0)
[2017-04-03 08:24] LABS: ANION GAP 15.8 mmol/L (8-16); CALCIUM 9.4 mg/dL (8.5-10.1); CARBON DIOXIDE 27.4 mmol/L (21.0-32.0); CREATININE - SERUM 6.7 mg/dL (0.6-1.3); POTASSIUM - SERUM 4.2 mmol/L (3.5-5.1)
[2017-04-03 09:25] VITALS: Ht 165.1 cm; Wt 54.9 kg
[2017-04-03 09:46] LABS: HCG URINE NEGATIVE (NEGATIVE)
--- NOTE | 2017-04-03 10:36 | NUR ---
BILATERAL EARRINGS-CAN'T REMOVE PER PATIENT TWO SILVER RINGS WITH BLUE AND CLEAR STONES TAKEN TO OP TO BE LOCKED UP AND GIVEN TO MONIKA HE RETURNS TO ROOM
[2017-04-03] MEDS ORDERED: HYDROCODON-ACE1 EAC7 PO ×2 (12:45→13:25)
--- NOTE | 2017-04-03 13:10 | NUR ---
PT REC'D TO ROOM VIA STRETCHER FROM PACU. AWAKE, ALERT. DRESSING INTACT TO LEFT UPPER INNER ARM. TRILL PRESENT. LEMON [place] SODA PROVIDED.
--- NOTE | 2017-04-03 13:44 | NUR ---
FULL LIQ DIET PROVIDED.
--- NOTE | 2017-04-03 14:26 | NUR ---
IV DC WITH CATHER TIP INTACT
--- NOTE | 2017-04-05 16:58 | OP ---
PATIENT NAME: DANIEL JUNIOR MEDICAL RECORD: [id number] :76 LOCATION:[facility] ADMISSION DATE: SURGEON: LUCÍA JACOB MD DATE OF OPERATION: 04/03/2017 REFERRING PHYSICIAN: Huber Gregory MD PREOPERATIVE DIAGNOSES: 1. End-stage renal disease, on dialysis via left internal jugular tunneled dialysis catheter. 2. Hypertension. POSTOPERATIVE DIAGNOSES: 1. End-stage renal disease, on dialysis via left internal jugular tunneled dialysis catheter. 2. Hypertension. OPERATION PERFORMED: Second stage operation for creation of left brachial artery to translocated basilic vein AV fistula. SURGEON: Lucía Jacob MD ANESTHESIA: General with LMA per [employer]DRAIS[employer]. PREOPERATIVE NOTE: Ms. Daniel Junior is a 36-year-old -[place]ese female from [place], [place]. She has end-stage renal disease and has begun dialysis with a catheter. She had a left arm AV fistula created as a first stage in preparation for creation of a brachial artery to translocated basilic vein AV fistula and now, as planned, is returning to the operating room as an outpatient for the actual creation of the translocated basilic vein fistula. DESCRIPTION OF PROCEDURE: Under anesthesia, the patient was prepped and draped in sterile manner. I examined with ultrasound and found the basilic vein to be dilating very nicely, about 12 mm in diameter, from elbow to axilla and fortunately with actually very few communicating or perforating veins and very few actual large tributaries. I made a long incision from the axilla to the antecubital space, exposed, and mobilized the vein, it from the surrounding sensory nerves, which were preserved as much as possible. There were several that had to be sacrificed. The vein was treated repeatedly during the procedure with topical papaverine. The vein adjacent to the arterial anastomosis was clamped, transected, and beveled. The proximal vein segment was flushed with heparinized saline and clamped. It was placed in a subcutaneous tunnel anterior to the primary incision and it was under no tension, very close to the skin, easily visible, and positioned so that it should be an excellent access for this young woman. The vein was reanastomosed with end-to-end technique with running 7-0 Prolene. When that suture line was completed and the occluding clamps released, excellent flow immediately was present in the fistula. Hemostasis at the suture line was quite good. There was excellent pulsatile Doppler flow signals in the radial artery at the wrist with and without the fistula compressed. The wound was irrigated with Ancef and gentamicin solution. It was infiltrated and irrigated with 0.25% Marcaine with epinephrine. The wound was closed without the use of a drain, approximating the subcutaneous tissues with interrupted and inverted 3-0 Vicryl. The skin was closed with running intracuticular 4-0 Monocryl and Dermabond glue. The skin incision was dressed with Maxorb Ag, Tegaderm, and Cavilon skin prep. The OPERATIVE REPORT [id number] DANIEL JUNIOR patient then awakened and taken to the recovery room in stable condition. PLAN: The patient will go home today, assuming she has transportation. She is given a prescription for [place] 5/325, #30. She can take one p.o. q. 4 hours p.r.n. pain. She is advised to elevate her arm as well for reduction of discomfort and swelling. She is to resume her usual home medications, her usual renal diet, and her routine dialysis schedule. She is to return to see me in my office in about 2 weeks and I expect that the new fistula should be able to be used for access in 2-4 weeks. Blood loss during the operation was about 20 cc, none was replaced intraoperatively. All sponges, instruments, and needles were accounted for. No drain was used and no surgical specimen was submitted for histopathology. TRANSINT:[id number] Voice Confirmation ID: [id number] DOCUMENT ID: [id number] LUCÍA JACOB MD at 1656 CC: KISHAN GREGORY MD [id number] DICTATION DATE: 04/03/17 1256 MAIL ORDER CLERK: 04/03/17 1726 [facility] 04/03/17 [facility] [address] [id number]
== END 2017-04-03 14:28 | disposition home or self-care (01) ==
LOC: D.OPS 07:34
PROVIDERS: Internal Medicine Nephrology; Surgery
DX: I12.0 Hypertensive chronic kidney disease with stage 5 chronic kidney disease or end stage renal disease (principal); N18.6 End stage renal disease; Z99.2 Dependence on renal dialysis; Z01.812 Encounter for preprocedural laboratory examination

== ENCOUNTER 2019-03-14 09:12 | Day surgery (SDC) | payer MEDICARE, BC ==
[~2019-03-14] VITALS: Ht 165.1 cm; Wt 58.1 kg
[~2019-03-14 09:12] MED LIST changes: +HYDROCODON-ACE1 EAC7 PO
[2019-03-14 10:00] LABS: BASOPHILS 0.5 % (0-2); EOSINOPHILS 6.3 % (0-7); HEMATOCRIT 36.3 % (36.0-48.0); HEMOGLOBIN 11.7 g/dL (12-16); IMMATURE GRANULOCYTES 0.2 % (0-5); LYMPHOCYTES 16.2 % (15-50); MCH 32.4 pg (26.0-34.0); MCHC 32.2 g/dL (31.0-37.0); MCV 100.6 fL (80.0-100.0); MEAN PLATELET VOLUME 9.9 fL (7.4-10.4); MONOCYTES 9.9 % (2-11); NEUTROPHILS 66.9 % (40-80); PLATELET COUNT 273 10x3/uL (130-400); RBC 3.61 10x6/uL (4.00-5.40); RDW 13.9 % (11.5-14.5); WBC 6.2 10x3/uL (4.8-10.8)
[2019-03-14 10:06] LABS: ANION GAP 13.8 mmol/L (8-16); CALCIUM 10.4 mg/dL (8.5-10.1); CARBON DIOXIDE 28.2 mmol/L (21.0-32.0); CREATININE - SERUM 8.2 mg/dL (0.6-1.3)
[2019-03-14 10:23] LABS: INR 1.08 (0.85-1.17); PROTIME 13.5 SECONDS (11.6-15.0)
[2019-03-14] MEDS ORDERED: ATIVAN1 MG PO (10:35)
[2019-03-14] MEDS ORDERED: OMNICEF300 MG PO (10:35)
[2019-03-14 10:48] LABS: HCG SERUM NEGATIVE (NEGATIVE)
[2019-03-14 10:53] VITALS: Ht 165.1 cm; Wt 58.1 kg
--- NOTE | 2019-03-14 16:21 | NUR ---
APON ARRIVAL TO PACU PATIENT SPO2 90'S ON 15L NON REBREATHER DECREASED. LUNG SOUNDS DIMINISHED IN LEFT LOWER BASES. CONSULTED ANESTHESIA. CXR DOES CONFIRM LEFT PLEURAL EFFUSION. DUONEB UPDRAFT ORDERED AT THIS TIME. ORDERS RECEIVED AND IMPLEMENTED. WILL CONTINUE TO MONITOR.
--- NOTE | 2019-03-18 15:18 | OP ---
PATIENT NAME: DANIEL JUNIOR MEDICAL RECORD: [id number] :76 LOCATION:[facility] ADMISSION DATE: SURGEON: LUCÍA JACOB MD DATE OF OPERATION: 03/14/2019 REFERRING PHYSICIAN: Livan Gregory MD; Dr. Willson, and Dr. Emilia Arizmendi. PREOPERATIVE DIAGNOSES: End-stage renal disease and dependence on hemodialysis with a high flow left brachial artery to translocated basilic vein AV fistula and recurring innominate vein stenosis. OPERATION PERFORMED: Revision of AV fistula and balloon angioplasty of central vein stenosis. ANESTHESIA: General with LMA per TRACK GREASER. SURGEON: Lucía Jacob MD PREOPERATIVE NOTE: Ms. Junior is a 38-year-old female from [place] who has end-stage renal disease and has been dialyzing with a very nice high flow somewhat aneurysmal left brachial artery to translocated basilic vein arterial venous fistula. She has had problems with recurring central vein stenosis, and after her last dilatation, Dr. Willson believe and had suggested that she have a banding of her fistula to reduce flow and therefore hopefully reduce shear forces, which resulted in faster recurrences of her central vein stenosis. We had some difficulty getting the patient here to the hospital because of other ongoing problems when she is brought in today as an outpatient with we plan to do an angiogram revise her fistula and dilate what stenoses are there. If there is recurrent central vein stenosis, I also plan to do drug-coated balloon treatment. DESCRIPTION OF PROCEDURE: Under general anesthetic per TRACK GREASER, the patient was placed in supine position and the left arm abducted and she was prepped and draped in sterile manner. The fistula was accessed first with micropuncture technique and a 6-Pakistani catheter inserted directed towards the arterial anastomosis. Contrast injections then demonstrated on fistulogram, no evidence of stenosis in the body of the fistula or in the swing segment or axillary vein. There was a very tight stenosis of the left innominate vein at the ostia at the confluence with the right innominate the form the superior vena cava, this was about a 90% stenosis. I was able to cross this easily with a 0.035 Glidewire and I dilated it with an 8-mm diameter Conquest balloon. Repeat contrast injection revealed minimal improvement. I subsequently dilated it again with a 12 mm diameter Pleasant Unity balloon, which revealed significant improvement with about 20% residual stenosis. I then treated this segment with a 12 mm diameter Lutonix balloon 60 mm in length. It was inflated to approximately 18 atmospheres and held inflated for 2 minutes before being deflated and removed. Repeat angiography demonstrated much better angiographic result, though still with 10% to 20% residual stenosis. The guidewire was removed and another introducer port was inserted. The first portion of the procedure had required an 8-Pakistani introducer. The latter portion required a 6-Pakistani introducer. A guidewire and glide catheter was then passed distally through the fistula and contrast injections demonstrated no evidence of other stenosis or other problem. The catheter and guidewire were manipulated across the arterial anastomosis and a selective distal brachial artery arteriogram performed, which revealed no evidence of any stenoses and normal appearing radial and ulnar and interosseous OPERATIVE REPORT [id number] DANIEL JUNIOR. I then placed a 5-mm diameter balloon into the JA segment over the wire. I made an incision along the medial aspect of the fistula and exposed the JA segment and with blunt dissection encircled it with a 2-0 Prolene tie. This was tied over the fully inflated 5 mm diameter balloon. When the balloon was deflated an excellent thrill returned and there was pulsatile flow within the fistula. Contrast injection in the JA very close to the arterial anastomosis and revealed good flow through the significant narrowing we had just produced and filling of the fistula and good runoff. At this point, the patient's wound was closed with 3-0 Vicryl and running intracuticular 4-0 Stratafix. The 6-Pakistani and 8-Pakistani introducers were removed and those sites closed with [id number] 4-0 Prolene sutures. The puncture sites were dressed with Ultrafoam, Tegaderm, and Cavilon skin prep. The incision distally was sealed with Dermabond glue and dressed with Maxorb Ag, Tegaderm, and Cavilon. The patient was awakened from her anesthetic and in stable condition returned to the recovery room. Blood loss during the procedure was insignificant and unreplaced. Sponges, instruments, and needles were accounted for. No drain was used and no specimen submitted for histopathology. PLAN: The patient will come back to see me in my office in 7-10 days for wound check. Of course, I need to be notified if there are any problems with her fistula function when she returns for dialysis tomorrow. I will try to get her scheduled for a followup fistulogram in the next 4-6 weeks at [facility]. It is very likely that the patient's stenosis will persist or worsen and I would recommend that she have a balloon expandable stent placed if balloon angioplasty becomes a problem or has to done too often. TRANSINT:[id number] Voice Confirmation ID: [id number] DOCUMENT ID: [id number] cc: [facility] [phone] [facility] [phone] LUCÍA JACOB MD at 1518 CC: EMILIA ARIZMENDI DO, SHARMA, MUKESH KUMAR MD and LIVAN [id number] DICTATION DATE: 03/14/19 1558 [employer] SPECIALIST: 03/14/19 2327 [facility] [place] 03/14/19 [facility] [address] [place] [address]
== END 2019-03-14 18:15 | disposition home or self-care (01) ==
LOC: D.OPS 09:12
PROVIDERS: Anesthesiology; Surgery; ATTEND Internal Medicine Nephrology
DX: I87.1 Compression of vein (principal); I12.0 Hypertensive chronic kidney disease with stage 5 chronic kidney disease or end stage renal disease; N18.6 End stage renal disease; Z99.2 Dependence on renal dialysis